=== PATIENT | female | born 1950 | race Caucasian/White ===

== ENCOUNTER 2018-12-31 16:54 | Emergency (ER) | payer BC, OTHER ==
[~2018-12-31] VITALS: Ht 142.2 cm; Wt 87.8 kg
[~2018-12-31 16:54] MED LIST: AMLO5TAB4; BENA40TA56; FAMO-96; GLIP10TA14; METF500T24; OMEP20CA16; PIOG30TA19; SITA100T11; TRAM50TA2 PO; ZOC10
[2018-12-31 16:58] VITALS: Ht 142.2 cm; Wt 87.8 kg
[2018-12-31] MEDS ORDERED: ONDANSETRON (ODT) 4 MG TAB ODT STA (17:42)
[2018-12-31] MEDS ORDERED: traMADol 50 MG TAB PO ONE (18:00)
[2018-12-31 21:22] VITALS: BP 173/82; PULSE 56; RESP 19
== END 2018-12-31 21:24 | disposition home or self-care (01) ==
LOC: FTE 16:54
DX: M79.605 Pain in left leg (principal); I10 Essential (primary) hypertension; E11.9 Type 2 diabetes mellitus without complications; Z79.84 Long term (current) use of oral hypoglycemic drugs
CPT/HCPCS: 73700; 93971